=== PATIENT | male | born 1975 | race Caucasian/White ===

== ENCOUNTER 2017-10-17 07:07 | Emergency (ER) | payer SELFPAY ==
--- NOTE | 2017-10-17 07:15 | EDM.PDOC ---
<Faustino Andrea - Last Filed: 10/17/17 07:12> ED HPI GENERAL MEDICAL PROBLEM - General Chief Complaint: Behavioral/Psych Stated Complaint: DEPRESSION, THOUGHTS OF HARM Time Seen by Provider: 10/17/17 07:12 - History of Present Illness INITIAL COMMENTS - FREE TEXT/NARRATIVE: HISTORY AND PHYSICAL: History of present illness: Patient 42-year-old white male history of depression who presents status post suicide attempt patient wrapped a sleeping bag cord around his neck paramedics and police arrived after patient called girlfriend informing her of his plans. On their arrival, patient laying on the floor nonverbal but conscious breathing. Heart regular patient has some minor abrasion ligature navarrete around the base of his neck he has not particularly conversant but does deny any ingestion does admit to depression and states he is on Wellbutrin Review of systems: As per history of present illness and below otherwise all systems reviewed and negative. Past medical history: As per history of present illness and as reviewed below otherwise noncontributory. Surgical history: As per history of present illness and as reviewed below otherwise noncontributory. Social history: No reported history of drug or alcohol abuse. Family history: As per history of present illness and as reviewed below otherwise noncontributory. Physical exam: HEENT: Abrasion/ligature navarrete noted around the base of his neck, normocephalic , pupils reactive, negative for conjunctival pallor or scleral icterus, mucous membranes moist, throat clear, neck supple, nontender, trachea midline. Lungs: Clear to auscultation, breath sounds equal bilaterally, chest nontender. Heart: S1S2, regular, negative for clicks, rubs, or JVD. Abdomen: Soft, nondistended, nontender. Negative for masses or hepatosplenomegaly. Negative for costovertebral tenderness. Pelvis: Stable nontender. Genitourinary: Deferred. Rectal: Deferred. Extremities: Atraumatic, negative for cords or calf pain. Neurovascular unremarkable. Neuro: Awake, alert, follows commands and moves all extremities limited grossly nonfocal exam Diagnostics: CBC CMP aspirin Tylenol level urine drug screen EtOH EKG chest x-ray soft tissue Therapeutics: None Impression: #1 depressive episode with suicide attempt Definitive disposition and diagnosis as appropriate pending reevaluation and review of above. - Related Data Allergies Allergy/AdvReac Type Severity Reaction Status Date / Time No Known Allergies Allergy Verified 10/17/17 07:09 Home Meds: Home Meds . [No Known Home Meds] 10/17/17 [History] ED ROS GENERAL - Review of Systems Review Of Systems: ROS reveals no pertinent complaints other than HPI. ED EXAM, GENERAL - Physical Exam Exam: See Below (See dictation) Course - Vital Signs Last Recorded V/S: Last Vital Signs Temp 97.7 F 10/17/17 07:19 Pulse 87 10/17/17 08:43 Resp 18 10/17/17 08:43 BP 121/87 10/17/17 08:43 Pulse Ox 99 10/17/17 08:43 - Orders/Labs/Meds Orders: Active Orders 24 hr Category Date Time Status EKG Documentation Completion [RC] STAT Care 10/17/17 07:15 Active Chest 2V [CR] Stat Exams 10/17/17 07:13 Taken Neck Soft Tissue [CR] Stat Exams 10/17/17 07:13 Taken Labs: Laboratory Tests 10/17/17 10/17/17 10/17/17 Range/Units 07:28 07:28 08:10 WBC 4.63 (4.0-11.0) K/uL RBC 4.63 (4.50-5.90) M/uL Hgb 15.2 (13.0-17.0) g/dL Hct 42.8 (38.0-50.0) % MCV 92.4 (80.0-98.0) fL MCH 32.8 H (27.0-32.0) pg MCHC 35.5 (31.0-37.0) g/dL RDW Std Deviation 41.7 (28.0-62.0) fl RDW Coeff of Yamileth 12 (11.0-15.0) % Plt Count 195 (150-400) K/uL MPV 9.00 (7.40-12.00) fL Neut % (Auto) 55.5 (48.0-80.0) % Lymph % (Auto) 30.7 (16.0-40.0) % [place] % (Auto) 8.9 (0.0-15.0) % Eos % (Auto) 4.5 (0.0-7.0) % Baso % (Auto) 0.4 (0.0-1.5) % Neut # (Auto) 2.6 (1.4-5.7) K/uL Lymph # (Auto) 1.4 (0.6-2.4) K/uL [place] # (Auto) 0.4 (0.0-0.8) K/uL Eos # (Auto) 0.2 (0.0-0.7) K/uL Baso # (Auto) 0.0 (0.0-0.1) K/uL Nucleated RBC % 0.0 /100WBC Nucleated RBCs # 0 K/uL Sodium 142 (136-148) mmol/L Potassium 3.5 (3.5-5.1) mmol/L Chloride 105 (98-107) mmol/L Carbon Dioxide 27.2 (21.0-32.0) mmol/L BUN 15 (7.0-18.0) mg/dL Creatinine 1.2 (0.8-1.3) mg/dL Est Cr Clr Drug Dosing TNP Estimated GFR (MDRD) > 60.0 ml/min Glucose 88 (74-106) mg/dL Calcium 8.9 (8.5-10.1) mg/dL Magnesium 1.8 (1.5-2.0) mg/dL Total Bilirubin 0.9 (0.2-1.0) mg/dL AST 21 (15-37) IU/L ALT 47 (14-63) IU/L Alkaline Phosphatase 120 H (46-116) U/L Total Protein 7.2 (6.4-8.2) g/dL Albumin 4.0 (3.4-5.0) g/dL Globulin 3.2 (2.0-3.5) g/dL Albumin/Globulin Ratio 1.3 (1.3-2.8) TSH 3rd Generation 1.96 (0.36-3.74) uIU/mL Urine Color YELLOW Urine Appearance CLEAR Urine pH 6.0 (5.0-8.0) Ur Specific [place] 1.025 (1.001-1.035) Urine Protein NEGATIVE (NEGATIVE) mg/dL Urine Glucose (UA) NEGATIVE (NEGATIVE) mg/dL Urine Ketones NEGATIVE (NEGATIVE) mg/dL Urine Occult Blood NEGATIVE (NEGATIVE) Urine Nitrite NEGATIVE (NEGATIVE) Urine Bilirubin NEGATIVE (NEGATIVE) Urine Urobilinogen 0.2 (<2.0) EU/dL Ur Leukocyte Esterase NEGATIVE (NEGATIVE) Urine RBC 0-2 (0-2/HPF) Urine WBC 0-1 (0-5/HPF) Ur Epithelial Cells RARE (NONE-FEW) Urine Bacteria FEW (NEGATIVE) Urine Mucus LIGHT (NONE-MOD) Salicylates <0.2 (0-20) mg/dL Urine Opiates Screen (NEGATIVE) Ur Oxycodone Screen (NEGATIVE) Urine Methadone Screen (NEGATIVE) Acetaminophen 0.0 ug/mL Ur Barbiturates Screen (NEGATIVE) Ur Phencyclidine Scrn (NEGATIVE) Ur Amphetamine Screen (NEGATIVE) U Methamphetamines Scrn (NEGATIVE) U Benzodiazepines Scrn (NEGATIVE) U Cocaine Metab Screen (NEGATIVE) U Marijuana (THC) Screen (NEGATIVE) Ethyl Alcohol < 3.0 mg/dL 10/17/17 Range/Units 08:10 WBC (4.0-11.0) K/uL RBC (4.50-5.90) M/uL Hgb (13.0-17.0) g/dL Hct (38.0-50.0) % MCV (80.0-98.0) fL MCH (27.0-32.0) pg MCHC (31.0-37.0) g/dL RDW Std Deviation (28.0-62.0) fl RDW Coeff of [place] (11.0-15.0) % Plt Count (150-400) K/uL MPV (7.40-12.00) fL Neut % (Auto) (48.0-80.0) % Lymph % (Auto) (16.0-40.0) % [place] % (Auto) (0.0-15.0) % Eos % (Auto) (0.0-7.0) % Baso % (Auto) (0.0-1.5) % Neut # (Auto) (1.4-5.7) K/uL Lymph # (Auto) (0.6-2.4) K/uL [place] # (Auto) (0.0-0.8) K/uL Eos # (Auto) (0.0-0.7) K/uL Baso # (Auto) (0.0-0.1) K/uL Nucleated RBC % /100WBC Nucleated RBCs # K/uL Sodium (136-148) mmol/L Potassium (3.5-5.1) mmol/L Chloride (98-107) mmol/L Carbon Dioxide (21.0-32.0) mmol/L BUN (7.0-18.0) mg/dL Creatinine (0.8-1.3) mg/dL Est Cr Clr Drug Dosing Estimated GFR (MDRD) ml/min Glucose (74-106) mg/dL Calcium (8.5-10.1) mg/dL Magnesium (1.5-2.0) mg/dL Total Bilirubin (0.2-1.0) mg/dL AST (15-37) IU/L ALT (14-63) IU/L Alkaline Phosphatase (46-116) U/L Total Protein (6.4-8.2) g/dL Albumin (3.4-5.0) g/dL Globulin (2.0-3.5) g/dL Albumin/Globulin Ratio (1.3-2.8) TSH 3rd Generation (0.36-3.74) uIU/mL Urine Color Urine Appearance Urine pH (5.0-8.0) Ur Specific [place] (1.001-1.035) Urine Protein (NEGATIVE) mg/dL Urine Glucose (UA) (NEGATIVE) mg/dL Urine Ketones (NEGATIVE) mg/dL Urine Occult Blood (NEGATIVE) Urine Nitrite (NEGATIVE) Urine Bilirubin (NEGATIVE) Urine Urobilinogen (<2.0) EU/dL Ur Leukocyte Esterase (NEGATIVE) Urine RBC (0-2/HPF) Urine WBC (0-5/HPF) Ur Epithelial Cells (NONE-FEW) Urine Bacteria (NEGATIVE) Urine Mucus (NONE-MOD) Salicylates (0-20) mg/dL Urine Opiates Screen NEGATIVE (NEGATIVE) Ur Oxycodone Screen NEGATIVE (NEGATIVE) Urine Methadone Screen NEGATIVE (NEGATIVE) Acetaminophen ug/mL Ur Barbiturates Screen NEGATIVE (NEGATIVE) Ur Phencyclidine Scrn NEGATIVE (NEGATIVE) Ur Amphetamine Screen NEGATIVE (NEGATIVE) U Methamphetamines Scrn NEGATIVE (NEGATIVE) U Benzodiazepines Scrn NEGATIVE (NEGATIVE) U Cocaine Metab Screen NEGATIVE (NEGATIVE) U Marijuana (THC) Screen NEGATIVE (NEGATIVE) Ethyl Alcohol mg/dL Departure - Departure Disposition: DC/Tfer to Other 70 Clinical Impression: Suicide attempt - Discharge Information Referrals: PCP,None [Primary Care Provider] - Forms: ED Department Discharge <Luke Perez - Last Filed: 10/17/17 08:54> Departure - Departure Time of Disposition: 08:53 Condition: Fair
[2017-10-17 08:04] LABS: CHLORIDE,CL 105 mmol/L (98-107); SODIUM,NA 142 mmol/L (136-148)
--- NOTE | 2017-10-17 10:26 | CR ---
EXAM DATE: 10/17/17 PATIENT'S AGE: 42 Patient: KIRSTEN PARK Facility: [place], [place] Site . Site : 1975 Study: XRay Chest [id number]/20/2018 7:38:48 AM Ordering Physician: Zully Harmon Final Report: HISTORY: Suicide attempt. TECHNIQUE: Two views of the chest. COMPARISON: No prior. FINDINGS: The cardiac size and pulmonary vasculature are within normal limits. There is no acute lung infiltrate or pulmonary edema. No pneumothorax or pleural effusion. No acute bony abnormality. IMPRESSION: No acute disease. Dictated by Perez Zelaya MD @ 10/17/2017 7:52:46 AM Dictated by: Perez Zelaya MD @ 10/17/2017 07:52:52 (Electronic Signature) Report Signed by Proxy. [facility]
--- NOTE | 2017-10-17 10:27 | CR ---
EXAM DATE: 10/17/17 PATIENT'S AGE: 42 Patient: KIRSTEN PARK Facility: [place], [place] Site . Site : 1975 Study: XRay ST Neck [id number]/20/2018 7:39:07 AM Ordering Physician: Zully Harmon Final Report: HISTORY: Suicide attempt. TECHNIQUE: Two views of the soft tissues of the neck. COMPARISON: No prior. FINDINGS: No abnormal prevertebral soft tissue swelling. The epiglottis is grossly unremarkable. Radiographically, the airway appears patent. Degenerative changes of the cervical spine. Straightening of the normal cervical lordosis. No acute fracture within the visualized portions of the cervical spine. Lung apices clear. IMPRESSION: Radiographically, the airway appears patent. Dictated by Perez Zelaya MD @ 10/17/2017 7:54:21 AM Dictated by: Perez Zelaya MD @ 10/17/2017 07:55:07 (Electronic Signature) Report Signed by Proxy. AMARI
== END 2017-10-17 09:50 | disposition other institution (70) ==
LOC: MW.ED 07:07
DX: S10.91XA Abrasion of unspecified part of neck, initial encounter (principal); F32.9 Major depressive disorder, single episode, unspecified; X83.8XXA Intentional self-harm by other specified means, initial encounter
CPT/HCPCS: 36415; 70360; 71046; 80053; 80305; 81001; 83735; 84443; 85025; 93005; 99285; G0480; 99284

== ENCOUNTER 2018-01-29 10:22 | Emergency (ER) | payer OTHER ==
--- NOTE | 2018-01-29 10:43 | EDM.PDOC ---
ED HPI GENERAL MEDICAL PROBLEM - General Chief Complaint: Upper Extremity Injury/Pain Stated Complaint: FALL Time Seen by Provider: 01/29/18 10:42 Source of Information: Reports: Patient History Limitations: Reports: No Limitations - History of Present Illness INITIAL COMMENTS - FREE TEXT/NARRATIVE: HISTORY AND PHYSICAL: []42-year-old presenting having fallen four feet is complaining of pain on his right shoulder. History of Present Illness: []Patient was pulling himself to prevent falling. He refuses to raise his arm because of pain. Review of Systems: As per history of present illness and below otherwise all systems reviewed and negative. Past medical history: As per history of present illness and as reviewed below otherwise noncontributory. Surgical history: As per history of present illness and as reviewed below otherwise noncontributory. Social history: No reported history of drug or alcohol abuse. Family history: As per history of present illness and as reviewed below otherwise noncontributory. Physical exam: Oriented man who is answering questions appropriately in full sentences without any shortness of breath nontoxic in appearance HEENT: Atraumatic, normocehpalic, pupils reactive, negative for conjunctival pallor or scleral icterus, mucous membranes moist, throat clear, neck supple, nontender, trachea midline. Lungs: Clear to auscultation, breath sounds equal bilaterally, chest non tender. Heart: S1S2, regular, negative for clicks, rubs, or JVD. Abdomen: Soft, nondistended, nontender. Negative for masses or hepatossplenmegaly. Negative for costovertebral tenderness. Pelvis: Stable nontender. Genitourinary: Deferred. Rectal: Deferred Extremities: Atraumatic, negative for cords or calf pain. Neurovascular unremarkable. Neuro: Awake, alert, oriented. Cranial nerves II through XII unremarkable. Cerebellum unremarkable. Motor and sensory unremarkable throughout. Exam nonfocal. Radiology report is negative for any fractures or dislocations he does have some arthritic joint Diagnostics: []X-rays of right shoulder and right elbow Therapeutics: []Sling Impression: []Right shoulder injury Plan: []Follow-up with orthopedics [facility] - Orthopedic Clinic Professional Building [address] [place] [address], [address] [place] [address] Call for an appointment follow-up of the emergency room visit Exercises will be given to you to prevent shoulder from becoming stiff Return to the emergency room should his symptoms worsen in intensity as directed and discussed Definitive disposition and diagnosis as appropriate pending reevaluation and review of above. right shoulder Pain Score (Numeric/FACES): 7 - Related Data Allergies Allergy/AdvReac Type Severity Reaction Status Date / Time No Known Allergies Allergy Verified 01/29/18 10:35 Home Meds: Home Meds Cholecalciferol (Vitamin D3) [Vitamin D] 2,000 unit PO DAILY 01/29/18 [History] buPROPion HCl [Wellbutrin Xl] 300 mg PO DAILY 01/29/18 [History] Past Medical History Psychiatric History: Reports: Depression, PTSD, Suicide Attempt - Infectious Disease History Infectious Disease History: Reports: Chicken Pox - Past Surgical History Musculoskeletal Surgical History: Reports: Other (See Below) Other Musculoskeletal Surgeries/Procedures:: knee surgery Social & Family History - Family History Family Medical History: Noncontributory - Tobacco Use Smoking Status *Q: Never Smoker - Caffeine Use Caffeine Use: Reports: Other - Recreational Drug Use Recreational Drug Use: No Review of Systems - Review of Systems Review Of Systems: ROS reveals no pertinent complaints other than HPI. ED EXAM, GENERAL - Physical Exam Exam: See Below (see dictation) Course - Vital Signs Last Recorded V/S: Last Vital Signs Temp 35.6 C 01/29/18 10:25 Pulse 85 01/29/18 10:25 Resp 20 01/29/18 10:25 BP 174/112 H 01/29/18 10:25 Pulse Ox 98 01/29/18 10:25 - Orders/Labs/Meds Meds: Medications Discontinued Medications Generic Name Dose Route Start Last Admin Trade Name Freq PRN Reason Stop Dose Admin Diphenhydramine HCl Confirm 01/29/18 10:44 01/29/18 11:42 Benadryl Administered 01/29/18 10:45 Not Given Dose 50 mg .ROUTE .STK-MED ONE Ketorolac Tromethamine 60 mg 01/29/18 11:33 01/29/18 11:50 Toradol IM 01/29/18 11:34 60 mg ONETIME ONE Administration Ondansetron HCl Confirm 01/29/18 10:46 01/29/18 11:42 Zofran Odt Administered 01/29/18 10:47 Not Given Dose 4 mg .ROUTE .STK-MED ONE Departure - Departure Time of Disposition: 12:27 Disposition: Home, Self-Care 01 Condition: Good Clinical Impression: Shoulder injury Qualifiers: Encounter type: initial encounter Laterality: right Qualified Code(s): S49.91XA - Unspecified injury of right shoulder and upper arm, initial encounter - Discharge Information Instructions: Shoulder Pain, [id number], How to Use a Sling, [id number] Referrals: PCP,None [Primary Care Provider] - Forms: ED Department Discharge Additional Instructions: The following information is given to patients seen in the emergency department who are being discharged to home. This information is to outline your options for follow-up care. We provide all patients seen in our emergency department with a follow-up referral. The need for follow-up, as well as the timing and circumstances, are variable depending upon the specifics of your emergency department visit. If you don't have a primary care physician on staff, we will provide you with a referral. We always advise you to contact your personal physician following an emergency department visit to inform them of the circumstance of the visit and for follow-up with them and/or the need for any referrals to a consulting specialist. The emergency department will also refer you to a specialist when appropriate. This referral assures that you have the opportunity for followup care with a specialist. All of these measure are taken in an effort to provide you with optimal care, which includes your followup. Under all circumstances we always encourage you to contact your private physician who remains a resource for coordinating your care. When calling for followup care, please make the office aware that this follow-up is from your recent emergency room visit. If for any reason you are refused follow-up, please contact the [facility] emergency department at and asked to speak to the emergency department charge nurse. Follow-up with orthopedics [facility] Specialty Care - Orthopedic Clinic Professional [address], [address] [place] [address] Call for an appointment follow-up of the emergency room visit Exercises will be given to you to prevent shoulder from becoming stiff Return to the emergency room should his symptoms worsen in intensity as directed and discussed
[2018-01-29] MEDS: diphenhydrAMINE 50 MG Cap ONE ×2 (10:50→11:42)
[2018-01-29] MEDS: Ondansetron 4 MG Tab.DIS ONE ×2 (10:50→11:42)
[2018-01-29] MEDS ORDERED: Ketorolac 60 MG/2 ML SDV IM ONE (11:33)
--- NOTE | 2018-01-29 12:00 | CR ---
EXAMINATION: Right elbow HISTORY: Injury COMPARISON: None TECHNIQUE: 3 views FINDINGS/IMPRESSION: There is no acute osseous abnormality, dislocation, or fracture. Bone mineraliza tion and joint spaces appear normal. No soft tissue swelling or joint effusion.
--- NOTE | 2018-01-29 12:02 | CR ---
EXAMINATION: Right shoulder HISTORY: Pain COMPARISON: None TECHNIQUE: 3 views FINDINGS/IMPRESSION: There is no acute osseous abnormality, dislocation, or fracture. Mild acromiocla vicular osteoarthritic changes. Glenohumeral joint space is preserved.
== END 2018-01-29 12:40 | disposition home or self-care (01) ==
LOC: MW.ED 10:22
DX: S49.91XA Unspecified injury of right shoulder and upper arm, initial encounter (principal); X50.9XXA Other and unspecified overexertion or strenuous movements or postures, initial encounter; Z79.899 Other long term (current) drug therapy
CPT/HCPCS: 73030; 73080; 96372; 99283; J1885; A9270-GY